=== PATIENT | male | born 1935 | race Caucasian/White ===

== ENCOUNTER 2018-04-01 09:52 | Emergency (ER) | payer MEDICARE, OTHER ==
[2018-04-01 10:14] VITALS: BP 100/52
--- NOTE | 2018-04-01 11:56 | UC ---
Knee Pain HPI - HPI Summary HPI Summary: left knee pain x 4 days twisted his left knee 4 days ago , heard a snap , has been having pain and swelling since the injury increase pain with walking , better with rest pain has been better since the last 1 day - History of Current Complaint Chief Complaint: UCLowerExtremity Stated Complaint: LT KNEE PAIN Time Seen by Provider: 04/01/18 10:20 Hx Obtained From: Patient, Family/Hyperbaric Tech Onset/Duration: Sudden Onset, Lasting Days - 4, Still Present Severity Initially: Moderate Severity Currently: Moderate Pain Intensity: 2 Character: Dull, Aching Aggravating Factor(s): Movement, Weight Bearing, Prolonged Standing, Stairs Alleviating Factor(s): Rest Associated Signs And Symptoms: Positive: Swelling. Negative: Redness, Bruising , Fever, Weakness - Allergies/Home Medications Allergies/Adverse Reactions: Allergies Allergy/AdvReac Type Severity Reaction Status Date / Time No Known Allergies Allergy Verified 04/01/18 10:07 Home Medications: Home Medications Brimonidine P 0.1%(NF) [Alphagan P 0.1% (NF)] 1 drop BOTH EYES TID 04/01/18 [ History Confirmed 04/01/18] Brinzolamide 1% OPHTH LALIT(NF) [Azopt 1% OPHTH LALIT(NF)] 1 drop RIGHT EYE BEDTIME 04/01/18 [History Confirmed 04/01/18] Dorzolamide/Timolol/Pf [Cosopt Pf Eye Drops] 1 each BOTH EYES BID 04/01/18 [ History Confirmed 04/01/18] Gabapentin CAP(*) [Neurontin 100 mg CAP(*)] 200 mg PO BEDTIME 04/01/18 [History Confirmed 04/01/18] Latanoprost 0.005%* [Xalatan 0.005%*] 1 drop RIGHT EYE QPM 04/01/18 [History Confirmed 04/01/18] Latanoprost 0.005%* [Xalatan 0.005%*] 1 drop RIGHT EYE QPM 04/01/18 [History Confirmed 04/01/18] Pravastatin Sodium 20 mg PO DAILY 04/01/18 [History Confirmed 04/01/18] Propylene Glycol/Peg 400/Pf [Systane 0.3-0.4% Eye Drops] 1 each OP QID 04/01/18 [History Confirmed 04/01/18] metFORMIN* [Glucophage 1000 MG TAB *] 1,000 mg PO DAILY 04/01/18 [History Confirmed 04/01/18] PMH/Surg Hx/FS Hx/Imm Hx Endocrine History: Diabetes - Surgical History Surgical History: Yes Surgery Procedure, Year, and Place: eye surgery - Family History Known Family History: Negative: Seizure Disorder - Social History Alcohol Use: None Substance Use Type: None Smoking Status (MU): Former Smoker When Did the Patient Quit Smoking/Using Tobacco: years ago Review of Systems All Other Systems Reviewed And Are Negative: Yes Constitutional: Positive: Negative Skin: Positive: Negative Eyes: Positive: Negative ENT: Positive: Negative Respiratory: Positive: Negative Is Patient Immunocompromised?: No Physical Exam Triage Information Reviewed: Yes Appearance: Well-Appearing, No Pain Distress, Well-Nourished Vital Signs: Initial Vital Signs Temp 98.2 F 04/01/18 10:08 Pulse 97 04/01/18 10:08 Resp 18 04/01/18 10:08 BP 100/52 04/01/18 10:08 Pulse Ox 98 04/01/18 10:08 Vital Signs Reviewed: Yes Eyes: Positive: Conjunctiva Clear ENT: Positive: Normal ENT inspection, Pharynx normal. Negative: Hearing grossly normal Neck: Positive: Supple, Nontender, No Lymphadenopathy Respiratory: Positive: Chest non-tender, Lungs clear, Normal breath sounds Cardiovascular: Positive: RRR, No Murmur, Pulses Normal Musculoskeletal: Positive: Other: - left knee: + swelling, + efussion pain with flexion and extension Diagnostics - Laboratory Diagnostic Studies Completed/Ordered: left knee : Report: Mild osteophytosis including a button osteophyte at the weightbearing portion of. the medial femoral condyle. Moderate medial joint space narrowing. Negative for effusion,. fracture, or malalignment. Peripheral vascular calcifications. Knee Pain Course/Dx - Differential Dx/Diagnosis Provider Diagnoses: left knee pain Discharge - Sign-Out/Discharge Documenting (check all that apply): Patient Departure All imaging exams completed and their final reports reviewed: Yes - Discharge Plan Condition: Stable Disposition: HOME Patient Education Materials: Swollen Knee Joint (ED) Referrals: Jone Nixon MD [Medical Doctor] - 5 Days Diane Matt MD [Primary Care Provider] - - Billing Disposition and Condition Condition: STABLE Disposition: Home
== END 2018-04-01 11:57 | disposition home or self-care (01) ==
LOC: UCCORT 09:52
DX: M25.562 Pain in left knee (principal); E11.9 Type 2 diabetes mellitus without complications; Z79.84 Long term (current) use of oral hypoglycemic drugs; Z87.891 Personal history of nicotine dependence; X50.1XXA Overexertion from prolonged static or awkward postures, initial encounter; Y92.9 Unspecified place or not applicable
CPT/HCPCS: 99201; G0463

== ENCOUNTER 2018-09-17 10:34 | Emergency (ER) | payer MEDICARE ==
[2018-09-17 10:54] VITALS: BP 103/53
[2018-09-17] MEDS ORDERED: Tetan/Diph/Pertus SYR(Tdap)* 0.5 ML SYR(BOOSTRIX) use SYR IM ONE (11:05)
--- NOTE | 2018-09-17 11:23 | UC ---
Skin Complaint HPI - HPI Summary HPI Summary: Pt c/o right foot swelling X 2-3 days. Pt has known cut on bottom of right foot at ball of foot, unsure cause, unsure or last tetanus. Pt is a diabetic and has neuropathy - History of Current Complaint Chief Complaint: UCLowerExtremity Time Seen by Provider: 09/17/18 10:57 Stated Complaint: RIGHT FOOT SWELLING Hx Obtained From: Patient - is hard of hearing, Family/Bilingual Sales Consultant Onset/Duration: Gradual Onset, Lasting Days, Still Present Skin Exposure Onset/Duration: Days Ago Timing: Constant Onset Severity: Mild Current Severity: Moderate Pain Intensity: 2 Character: Swelling, Redness Aggravating Factor(s): Touch Alleviating Factor(s): Unknown Associated Signs & Symptoms: Positive: Tenderness Related History: Trauma - cut to bottom of foot - Allergy/Home Medications Allergies/Adverse Reactions: Allergies Allergy/AdvReac Type Severity Reaction Status Date / Time No Known Allergies Allergy Verified 09/17/18 10:47 Home Medications: Home Medications Cholecalciferol TAB* [Vitamin D TAB*] 1,000 unit PO DAILY 09/17/18 [History Confirmed 09/17/18] Cyanocobalamin TAB* [Vitamin B12 TAB*] 1,000 mcg PO DAILY 09/17/18 [History Confirmed 09/17/18] Folic Acid TAB* [Folvite TAB*] 1 mg PO DAILY 09/17/18 [History Confirmed ] Rosuvastatin Calcium 20 mg PO DAILY 09/17/18 [History Confirmed 09/17/18] PMH/Surg Hx/FS Hx/Imm Hx Previously Healthy: Yes Endocrine History: Diabetes Cardiovascular History: Cardiac Disease - Surgical History Surgical History: Yes Surgery Procedure, Year, and Place: eye surgery - Family History Known Family History: Negative: Seizure Disorder - Social History Occupation: Retired Lives: Alone Alcohol Use: None Substance Use Type: None Smoking Status (MU): Former Smoker Have You Smoked in the Last Year: No When Did the Patient Quit Smoking/Using Tobacco: years ago - Immunization History Vaccination Up to Date: No Review of Systems All Other Systems Reviewed And Are Negative: Yes Constitutional: Positive: Negative Skin: Positive: Other - swelling mild erythema Eyes: Positive: Negative ENT: Positive: Negative Respiratory: Positive: Negative Cardiovascular: Positive: Negative Gastrointestinal: Positive: Negative Genitourinary: Positive: Negative Motor: Positive: Negative, Weakness - generalized at baseline Neurovascular: Positive: Decreased Sensation - at baseline Musculoskeletal: Positive: Edema - right foot Neurological: Positive: Negative, Paresthesia - bilateral feet, at baseline Psychological: Positive: Negative Is Patient Immunocompromised?: No Physical Exam Triage Information Reviewed: Yes Completion Of Physical Exam Limited Due To: Other - hard of hearing Appearance: Other: - unkempt Vital Signs: Initial Vital Signs Temp 97.9 F 09/17/18 10:47 Pulse 76 09/17/18 10:47 Resp 18 09/17/18 10:47 BP 103/53 09/17/18 10:47 Pulse Ox 98 09/17/18 10:47 Vital Signs Reviewed: Yes Eyes: Positive: Other: - eye ptosis, left ENT: Positive: Other - hard of hearing Dental: Positive: Gross Decay/Caries @ Respiratory: Positive: No respiratory distress Musculoskeletal: Positive: Edema @ - right foot, non pitting Neurological: Positive: Other: - decreased sensation right foot, Psychological Exam: Normal Skin Exam: Other - generalized mild erythema right foot, mild swelling, non pitting. on ball of right foot, laceration~ 1 cm not bleeding, no discharge. Pt is generally unkempt, foot is soiled Course/Dx - Course Course Of Treatment: pt was instructed to follow up with PCP this week. To keep foot clean and dry, monitor for worsening of injection. Pt verbalized understanding and agreed to plan of care. - Differential Diagnoses - Skin Complaint Differential Diagnoses: Cellulitis, Tinea - Diagnoses Provider Diagnosis: Wound infection Discharge - Sign-Out/Discharge Documenting (check all that apply): Patient Departure All imaging exams completed and their final reports reviewed: No Studies - Discharge Plan Condition: Stable Disposition: HOME Prescriptions: Cephalexin CAP* [Keflex 500 CAP*] 500 mg PO Q8H #30 cap Patient Education Materials: Wound Infection (ED), Acute Wound Care (ED) Referrals: Diane Matt MD [Primary Care Provider] - As Soon As Possible - Billing Disposition and Condition Condition: STABLE Disposition: Home
== END 2018-09-17 11:17 | disposition home or self-care (01) ==
LOC: UCCORT 10:34
DX: S91.311A Laceration without foreign body, right foot, initial encounter (principal); L08.9 Local infection of the skin and subcutaneous tissue, unspecified; W45.8XXA Other foreign body or object entering through skin, initial encounter; Y92.9 Unspecified place or not applicable; Z23 Encounter for immunization; E11.40 Type 2 diabetes mellitus with diabetic neuropathy, unspecified; I51.9 Heart disease, unspecified; Z87.891 Personal history of nicotine dependence
CPT/HCPCS: 90471; 90715; 99212; G0463